=== PATIENT | female | born 1935 | race Caucasian/White ===

== ENCOUNTER 2018-09-22 09:00 | Day surgery (SDC) | payer MEDICARE, MEDICAID ==
[~2018-09-22] VITALS: Ht 157.5 cm; Wt 38.0 kg
[2018-09-22 09:30] VITALS: BP 124/72
[2018-09-22] MEDS ORDERED: LIDOcaine 1% 30ml preserv. free vial SQ STA (09:48)
[2018-09-22 10:20] VITALS: BP 118/84
[2018-09-22 10:23] VITALS: BP 105/65
[2018-09-22 10:25] VITALS: BP 125/71
[2018-09-22] MEDS ORDERED: ATOR20TA PO (10:35)
[2018-09-22] MEDS ORDERED: ASPI-1265 PO (10:37)
[2018-09-22] MEDS ORDERED: DEXL60CA3 PO (10:37)
[2018-09-22] MEDS ORDERED: ACET1TAB12 PO (10:38)
[2018-09-22 11:00] VITALS: BP 132/75
[2018-09-22 11:15] VITALS: BP 120/76
[2018-09-22 11:51] LABS: GLUCOSE,BODY FLUID 121 MG/DL; LDH,BODY FLUID 73 U/L; TOTAL PROTEIN,BODY FLUID 3.7 G/DL
[2018-09-22 12:19] LABS: LYMPHOCYTES,BODY FLUID 42 %; MONOCYTES,BODY FLUID 17 %; NEUTROPHILS,BODY FLUID 41 %
[2018-09-22 12:20] LABS: BF RBC COUNT 34 /CU MM; BF WBC COUNT 600 /CU MM (0-1000); BFAPPEAR HAZY; BFCOLOR YELLOW; BFVOLUME 60 ML
== END 2018-09-22 11:20 | disposition home or self-care (01) ==
LOC: SSTAY O 09:00
PROVIDERS: ATTEND Radiology Diagnostic Radiology
DX: J90 Pleural effusion, not elsewhere classified (principal); K21.9 Gastro-esophageal reflux disease without esophagitis; E78.00 Pure hypercholesterolemia, unspecified; J43.9 Emphysema, unspecified; Z99.81 Dependence on supplemental oxygen; Z87.891 Personal history of nicotine dependence; Z87.11 Personal history of peptic ulcer disease; Z90.711 Acquired absence of uterus with remaining cervical stump; Z85.118 Personal history of other malignant neoplasm of bronchus and lung; Z79.891 Long term (current) use of opiate analgesic; Z79.82 Long term (current) use of aspirin; Z79.899 Other long term (current) drug therapy; Z98.890 Other specified postprocedural states
CPT/HCPCS: 32555; 71045; 82945; 83615; 84157; 87070; 89051; J3490; 88108; 88305